=== PATIENT | female | born 1950 | race Caucasian/White ===

== ENCOUNTER 2016-05-18 09:57 | Outpatient (CLI) | payer BC, MEDICARE ==
[2016-05-18 10:49] VITALS: BP 129/73; PULSE 75; RESP 16; TEMP 98.4
[2016-05-18] MEDS ORDERED: DENOSUMAB 60 MG/ML 1 ML SYRINGE SQ ONE (23:00)
== END 2016-05-18 12:14 | disposition home or self-care (01) ==
LOC: PROCWHC3 09:57
PROVIDERS: ATTEND Family Medicine
DX: M81.0 Age-related osteoporosis without current pathological fracture (principal)
CPT/HCPCS: 96372; J0897

== ENCOUNTER → 2016-09-23 | Outpatient (CLI) | payer MEDICARE ==
--- NOTE | 2016-09-23 15:48 | CT ---
CT CHEST FOR PULMONARY EMBOLISM. EXAMINATION TYPE: CT angio chest DATE OF EXAM: 09/23/2016 INDICATION: Shortness of breath and fatigue x [address] DLP: 464.00 mGycm, Automated exposure control for dose reduction was used. CONTRAST: Patient injected with 64 mL of Omnipaque 350. COMPARISON: NONE TECHNIQUE: CT of the chest is performed on a spiral scan at 2 mm thick sections. Study is performed with intravenous contrast timed for evaluation for pulmonary embolism. This will limit additional po rtions of the evaluation. 3-D MIP images reconstructed by the technologist are reviewed on the compu ter in the coronal and sagittal planes. FINDINGS: No persistent filling defects are evident to suggest an acute pulmonary embolism. No mediastinal or hilar adenopathy enlarged by CT criteria is evident. The ascending aorta diameter at the level of the main pulmonary artery is 2.6 cm. The main pulmonary artery diameter at the bifur cation is 2.1 cm. Lung windows are clear. Limited CT section through the upper abdomen are unremarkable. IMPRESSIONS: 1. No acute pulmonary embolism.
== END | disposition home or self-care (01) ==
LOC: RADCTMAIN 14:19
PROVIDERS: ATTEND Family Medicine
DX: R06.00 Dyspnea, unspecified (principal)
CPT/HCPCS: 71275; Q9967

== ENCOUNTER 2016-11-01 07:47 | Day surgery (SDC) | payer MEDICARE ==
[2016-10-26 10:51] VITALS: BMI 28.9
[~2016-11-01 07:47] MED LIST: ALPRAZolam 0.25 MG TAB PO PRN; ALPRAZolam 0.5 MG TAB PO PRN; ASPIRIN 325 MG TAB PO STA; ATORVASTATIN 80 MG TAB PO STA; NITROGLYCERIN SL TABS 0.4 MG TAB SUBLINGUAL PRN; SODIUM CHLORIDE 0.9% 1,000 ML in EMPTY BAG 1 BAG IV ONE
[2016-11-01 08:05] VITALS: TEMP 97.8
[2016-11-01 08:29] LABS: Anion Gap 8 mmol/L; Blood Urea Nitrogen 17 mg/dL (7-17); Calcium 8.8 mg/dL (8.4-10.2); Carbon Dioxide 22 mmol/L (22-30); Chloride 110 mmol/L (98-107); Glucose 81 mg/dL (74-99); Non-African American GFR(MDRD) >60 (>60 ml/min/1.73 sqM); Potassium 4.3 mmol/L (3.5-5.1); Sodium 140 mmol/L (137-145)
[2016-11-01 08:55] LABS: Basophils # (A) 0.1 k/uL (0-0.2); Basophils % (A) 1 %; CH 28.5; CHCM 33.4; Eosinophils # (A) 0.2 k/uL (0-0.7); Eosinophils % (A) 3 %; HCT 42.6 % (34.0-46.0); HDW 2.44; HGB 14.2 gm/dL (11.4-16.0); Luc # (Auto) 0.12; Luc % (Auto) 2; Lymphocytes # (A) 2.5 k/uL (1.0-4.8); Lymphocytes % (A) 36 %; MCH 28.7 pg (25.0-35.0); MCHC 33.5 g/dL (31.0-37.0); MCV 85.7 fL (80.0-100.0); Mean Platelet Volume 7.5; Monocytes # (A) 0.3 k/uL (0-1.0); Monocytes % (A) 5 %; Neutrophils # (A) 3.7 k/uL (1.3-7.7); Neutrophils % (A) 54 %; RBC 4.97 m/uL (3.80-5.40); RDW 13.1 % (11.5-15.5); WBC 6.9 k/uL (3.8-10.6); WBC (Perox) 6.95
[2016-11-01] MEDS ORDERED: MIDAZOLAM 2 MG/2 ML VIAL IV ONE ×2 (09:15→09:20)
[2016-11-01] MEDS ORDERED: LIDOCAINE 2% INJ 20 MG/ML SQ ONE (09:16)
[2016-11-01] MEDS: NITROGLYCERIN 1000MCG/10ML SYRINGE INTRACORON ONE ×2 (09:41→09:45)
[2016-11-01] MEDS ORDERED: IOHEXOL 350 MG/ML 125ML BOTTLE INJ ONE (10:00)
[2016-11-01] MEDS ORDERED: RX INFO: IV CONTRAST WAS GIVEN 1 EACH MISC MISCELLANE PRN (10:07)
[2016-11-01] MEDS ORDERED: SODIUM CHLORIDE 0.9% 1,000 ML IV SCH (10:15)
[2016-11-01 10:44] VITALS: RESP 16
[2016-11-01 15:20] VITALS: PULSE 72
[2016-11-01 16:34] VITALS: BP 120/70
--- NOTE | 2016-11-02 11:45 | CC ---
DATE OF SERVICE: 11/01/16 PERFORMING PHYSICIAN: Ashu Conway M.D., geological specialist. PROCEDURE PERFORMED: 1. Right heart catheter. 2. Left heart catheterization. 3. Selective right and left coronary angiogram. INDICATIONS: This is a pleasant 65 year old female who has a very significant family history of coronary artery disease, was experiencing chest discomfort. She was brought today to undergo a heart catheterization. APPROACH: Right common femoral artery and right common femoral vein. COMPLICATIONS: None. LEVEL OF SEDATION: Moderate. SEDATION LENGTH: 30 minutes. PROCEDURE DESCRIPTION: After obtaining informed consent, the patient was brought to the cardiac lab specialist. The right common femoral artery and right common femoral vein were cannulated using micropuncture technique under ultrasound guidance. The micropuncture wire passed easily. Then, I placed an 8 Luxembourger sheath in the right common femoral vein and a 6 Luxembourger sheath in the right common femoral After that, I did right heart catheterization using 6 Luxem[place]ger [place] catheter. After that, I did selective right and left coronary angiogram using [place] for the right and left circumflex and JL4 for the left coronary system. I did left heart catheterization using JL4 catheter which flowed into the LV and I did pull back per protocol. SELECTIVE CORONARY ANGIOGRAM: 1. The right coronary artery is a large caliber vessel and it is a dominant vessel. It is angiographically normal. It bifurcates into the PDA and PLV branches, both are angiographically normal. 2. 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 3. The left main is not exist. 4. The left anterior descending coronary artery: The left anterior descending artery is angiographically normal. It the proximal portion, it gives rise into two diag branches and seems to be angiographically normal. The mid LAD gives rise into third diag branch which is small caliber vessel seems to be angiographically normal. HEMODYNAMICS: The left ventricular end diastolic pressure as well as right heart pressures are within normal limits. CONCLUSION: 1. 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 2. Severe coronary vasospasm responds nicely to IC nitroglycerine. 3. Normal right heart pressures. [facility]
== END 2016-11-01 17:40 | disposition home or self-care (01) ==
LOC: CATHCVL 07:47
PROVIDERS: ATTEND Internal Medicine Interventional Cardiology
DX: I25.111 Atherosclerotic heart disease of native coronary artery with angina pectoris with documented spasm (principal); Q24.8 Other specified congenital malformations of heart; Z82.49 Family history of ischemic heart disease and other diseases of the circulatory system; Z79.899 Other long term (current) drug therapy; Z88.1 Allergy status to other antibiotic agents
CPT/HCPCS: 93460; 76937; 80048; 85025; 99152; 99153 ×2; C1894 ×2; C1769 ×2; J2001; J2250; Q9967

== ENCOUNTER → 2016-12-09 | Outpatient (CLI) | payer MEDICARE ==
[~2016-12-09] MED LIST changes: -ALPRAZolam 0.25 MG TAB PO PRN; -ALPRAZolam 0.5 MG TAB PO PRN; -ASPIRIN 325 MG TAB PO STA; -ATORVASTATIN 80 MG TAB PO STA; +DENOSUMAB 60 MG/ML 1 ML SYRINGE SQ ONE; -NITROGLYCERIN SL TABS 0.4 MG TAB SUBLINGUAL PRN; -SODIUM CHLORIDE 0.9% 1,000 ML in EMPTY BAG 1 BAG IV ONE
[2016-12-09 13:11] VITALS: BP 132/70; PULSE 88; RESP 16; TEMP 97.8
== END | disposition home or self-care (01) ==
LOC: PROCWHC3 12:51
PROVIDERS: ATTEND Family Medicine
DX: M81.0 Age-related osteoporosis without current pathological fracture (principal)
CPT/HCPCS: 96372; J0897

== ENCOUNTER → 2017-06-16 | Outpatient (CLI) | payer MEDICARE ==
[~2017-06-16] MED LIST changes: +DENOSUMAB 60 MG/ML 1 ML SYRINGE SQ NR; -DENOSUMAB 60 MG/ML 1 ML SYRINGE SQ ONE
[2017-06-16 12:37] VITALS: BP 142/75; PULSE 79; RESP 16; TEMP 97.7
== END | disposition home or self-care (01) ==
LOC: PROCWHC3 12:27
PROVIDERS: ATTEND Family Medicine
DX: M81.0 Age-related osteoporosis without current pathological fracture (principal)
CPT/HCPCS: 96372; J0897

== ENCOUNTER → 2024-03-08 | Outpatient (CLI) | payer MEDICARE ==
--- NOTE | 2024-03-12 08:47 | MM ---
Reason for Exam: Screening (asymptomatic). Last mammogram was performed 9 year(s) and 0 month(s) ago. Patient History: Menarche at age 11. First Full-Term at age 19. Postmenopausal. 12/19/1998, Ultrasound-Guided Core Biopsy. 12/19/1998, Benign Excisional Biopsy on the right side. Risk Values: Vanessa 5 year model risk: 2.4%. NCI Lifetime model risk: 5.1%. Prior Study Comparison: 11/26/1998 Bilateral Diagnostic Mammogram, [facility]. 02/15/2002 Bilateral Diagnostic Mammogram, [facility]. 03/06/2015 Bilateral Screening Mammogram, [facility]. Tissue Density: The breasts are heterogeneously dense, which may obscure small masses. Findings: Analyzed By CAD. Left breast biopsy clip. Right breast: 7 mm mass not clearly seen on prior 5.4 cm nipple line on MLO view and slightly lateral an CC view Left breast: There is no suspicious group of microcalcifications or new suspicious mass. Overall Assessment: Incomplete: need additional imaging evaluation, BI-RAD 0 Management: Diagnostic Breast Ultrasound of the right breast. [facility] will attempt to contact patient to return for supplemental views and ultrasound if indicated. Patient should continue monthly self-breast exams. A clinical breast exam by your physician is recommended on an annual basis. This exam should not preclude additional follow-up of suspicious palpable abnormalities. Note on Vanessa scores and lifetime risk: 1. A Vanessa score greater than 3% is considered moderate risk. If this is the case, consider specialist referral to assess eligibility for a risk reducing agent. 2. If overall lifetime risk for the development of breast cancer is 20% or higher, the patient may qualify for future screening with alternating mammogram and breast MRI. [facility], , 03/12/2024 8:44 AM. Electronically signed and approved by: Tray Liao DO
== END | disposition home or self-care (01) ==
LOC: RADMAMWWP 12:29
PROVIDERS: ATTEND Family Medicine
DX: Z12.31 Encounter for screening mammogram for malignant neoplasm of breast (principal); Z78.0 Asymptomatic menopausal state; R92.333 Mammographic heterogeneous density, bilateral breasts; Z98.82 Breast implant status
CPT/HCPCS: 77063; 77067

== ENCOUNTER → 2024-03-14 | Outpatient (CLI) | payer MEDICARE ==
--- NOTE | 2024-03-14 15:13 | USB ---
Reason for Exam: Additional evaluation requested from prior study. Patient History: Menarche at age 11. First Full-Term at age 19. Postmenopausal. 12/19/1998, Ultrasound-Guided Core Biopsy. 12/19/1998, Benign Excisional Biopsy on the right side. Risk Values: Vanessa 5 year model risk: 2.4%. NCI Lifetime model risk: 5.1%. Technique: Method: Targeted. Prior Study Comparison: 02/15/2002 Bilateral Diagnostic Mammogram, [facility]. 03/06/2015 Bilateral Screening Mammogram, [facility]. 03/08/2024 Bilateral MG 3D screening mammo w/cad, [facility]. Findings: The lower section of the breast of the right breast, the axilla of the right breast and the retroareolar of the right breast were scanned. There is a hypoechoic area near the nipple measuring 0.4 x 0.5 x 0.6 cm. This may have some internal echoes. Short-term follow-up is recommended in 3 months. In the outer aspect 9:00 position left breast 6 cm from nipple is a benign appearing 0.6 x 0.5 x 0.6 cm anechoic structure with good through transmission and posterior wall enhancement compatible with small cyst. This appears to correlate with the mammographic findings. Overall Assessment: Probably benign, BI-RAD 3 Management: Diagnostic Breast Ultrasound of the right breast in 3 months. A clinical breast exam by your physician is recommended on an annual basis and results should be correlated with mammographic findings. This exam should not preclude additional follow-up of suspicious palpable abnormalities. Results were given to the patient verbally at the time of exam. [facility], , 03/14/2024 3:09 PM. Electronically signed and approved by: Calvin Bird D.O. Radiologis
== END | disposition home or self-care (01) ==
LOC: RADUSWWP 14:40
PROVIDERS: ATTEND Family Medicine
DX: R92.8 Other abnormal and inconclusive findings on diagnostic imaging of breast (principal); Z78.0 Asymptomatic menopausal state